=== PATIENT | female | born 1990 | race Caucasian/White ===

== ENCOUNTER 2016-04-26 20:16 | Emergency (ER) | payer SELFPAY ==
--- NOTE | 2016-04-26 20:49 | ER Document Report ---
ED Medical Screen (RME) - General Stated Complaint: FEVER Notes: 25 yo female c/o flu like symptoms x 4 days. + fever, myalgia, cough no flu shot this season Physical Exam - Vital signs Vitals: Temp Pulse Resp BP Pulse Ox 98.8 F 117 H 18 122/81 98 04/26/16 20:46 04/26/16 20:46 04/26/16 20:46 04/26/16 20:46 04/26/16 20:46 Course - Vital Signs Vital signs: Temp Pulse Resp BP Pulse Ox 98.8 F 117 H 18 122/81 98 04/26/16 20:46 04/26/16 20:46 04/26/16 20:46 04/26/16 20:46 04/26/16 20:46
[2016-04-27 01:00] VITALS: BP 124/79
--- NOTE | 2016-04-27 01:07 | ER Document Report ---
ED Flu Like - General Chief Complaint: Flu Symptoms Stated Complaint: FEVER Time seen by provider: 01:02 Mode of Arrival: Ambulatory Information source: Patient Notes: 25-year-old female presents to ED for flulike symptoms. She states she's has a stuffy nose cough fever nausea muscle aches and states she did not get a flu shot this season. - HPI Onset: Other - 4 days Timing/Duration: Persistent Quality of pain: Achy Severity: Moderate Pain Level: 2 CO exposure: No Associated symptoms: Body/muscle aches, Nonproductive cough, Vomiting, Rhinnorhea, Sinus pain/drainage Similar symptoms previously: Yes Recently seen / treated by doctor: No - Related Data Allergies/Adverse Reactions: milk Allergy (Verified 04/27/16 01:18) Penicillins Allergy (Verified 04/27/16 01:18) Past Medical History - General Information source: Patient - Social History Smoking Status: Never Smoker Cigarette use (# per day): No Chew tobacco use (# tins/day): No Smoking Education Provided: No Frequency of alcohol use: Occasional Drug Abuse: None Occupation: printing assistant Lives with: Alone Family History: Arthritis, DM, Malignancy, Thyroid Disfunction. denies: CAD, COPD, CVA, Hyperlipidemia, Hypertension Patient has suicidal ideation: No Patient has homicidal ideation: No - Past Medical History Cardiac Medical History: Reports: None Pulmonary Medical History: Reports: None EENT Medical History: Reports: None Neurological Medical History: Reports: None Endocrine Medical History: Reports: None Renal/ Medical History: Reports: None, Hx Ovarian Cysts Malignancy Medical History: Reports: None GI Medical History: Reports: None Musculoskeltal Medical History: Reports None Skin Medical History: Reports None Psychiatric Medical History: Reports: Hx Anxiety, Hx Depression Traumatic Medical History: Reports: None Infectious Medical History: Reports: None - Immunizations Immunizations up to date: No Hx Diphtheria, Pertussis, Tetanus Vaccination: No History of Influenza Vaccine for 12/2015 - 05/2016 Season: No Review of Systems - Review of Systems Constitutional: Fever, Recent illness EENT: Nose discharge, Sinus pressure, Throat pain Cardiovascular: No symptoms reported Respiratory: Cough Gastrointestinal: No symptoms reported Genitourinary: No symptoms reported Female Genitourinary: No symptoms reported Musculoskeletal: No symptoms reported Skin: No symptoms reported Hematologic/Lymphatic: No symptoms reported Neurological/Psychological: No symptoms reported Physical Exam - Vital signs Vitals: Temp Pulse Resp BP Pulse Ox 98.8 F 117 H 18 122/81 98 04/26/16 20:46 04/26/16 20:46 04/26/16 20:46 04/26/16 20:46 04/26/16 20:46 Interpretation: Normal, Tachycardic - Pulses 104 at discharge - General General appearance: Appears well, Alert - HEENT Head: Normocephalic, Atraumatic Eyes: Normal Pupils: PERRL Ears: Normal External canal: Normal Tympanic membrane: Normal Sinus: Normal Nasal: Purulent discharge, Swelling Mouth/Lips: Normal Mucous membranes: Normal Pharynx: Post nasal drainage - Respiratory Respiratory status: No respiratory distress Chest status: Nontender Breath sounds: Nonproductive cough Chest palpation: Normal - Cardiovascular Rhythm: Regular Heart sounds: Normal auscultation Murmur: No - Abdominal Inspection: Normal Distension: No distension Bowel sounds: Normal Tenderness: Nontender Organomegaly: No organomegaly - Back Back: Normal, Nontender - Extremities General upper extremity: Normal inspection, Nontender, Normal color, Normal ROM , Normal temperature General lower extremity: Normal inspection, Nontender, Normal color, Normal ROM , Normal temperature, Normal weight bearing. No: Monika's sign - Neurological Neuro grossly intact: Yes Cognition: Normal Orientation: AAOx4 [place] Coma Scale Eye Opening: Spontaneous Yary Coma Scale Verbal: Oriented [place] Coma Scale Motor: Obeys Commands [place] Coma Scale Total: 15 Speech: Normal Motor strength normal: LUE, RUE, LLE, RLE Sensory: Normal - Psychological Associated symptoms: Normal affect, Normal mood - Skin Skin Temperature: Warm Skin Moisture: Dry Skin Color: Normal Course - Re-evaluation Re-evalutation: 04/27/16 06:50 Assessment consistent with upper respiratory infection. She has had the symptoms for 4 days. She was instructed on upper respiratory infection treatment and precautions. She was discharged home with instructions to use Tylenol or Motrin for pain and fever. - Vital Signs Vital signs: Temp Pulse Resp BP Pulse Ox 98.5 F 104 H 18 124/79 97 04/27/16 00:58 04/27/16 00:58 04/27/16 00:58 04/27/16 00:58 04/27/16 00:58 Discharge - Discharge Clinical Impression: Upper respiratory infection Qualifiers: URI type: unspecified URI Qualified Code(s): J06.9 - Acute upper respiratory infection, unspecified Condition: Stable Disposition: HOME, SELF-CARE Additional Instructions: UPPER RESPIRATORY ILLNESS: You have a viral infection of the respiratory passages -- a "cold." This common infection causes nasal congestion, drainage, and often sore throat and cough. It is highly contagious. The disease usually lasts about 10 to 14 days. There is no "cure" for the viral infection -- it must run its course. If there is a complication, such as bacterial infection in the nose, sinuses, middle ear, or bronchial tubes, antibiotics may be required. The antibiotics won't affect the virus. Drink plenty of fluids. A humidifier may help. An expectorant medication or decongestant may make you more comfortable. Use acetaminophen or ibuprofen for fever or aches. See the doctor if fever persists over two days, if there is any significant worsening of your symptoms, or if you simply fail to improve as expected. DECONGESTANT MEDICATION: A decongestant medicine has been suggested. Often this medicine is combined in the same tablet with an antihistamine or expectorant. This type of medicine is helpful in treating a bad cold or sinus condition, as well as in treatment of the nasal congestion of hay fever. It is not of much benefit for lung infections. Decongestant medicines are related to stimulants. They can cause an increase in blood pressure and heart rate. Persons with heart disease and high blood pressure should not take decongestants without discussing this with the physician. If you develop palpitations, chest pain, headache, or tremors, stop the medicine and consult your physician. COUGH-SUPPRESSANT & EXPECTORANT MEDICATION: You are to use a cough medication as needed for relief of symptoms. This medicine is a combination of an expectorant (to make the mucous thinner and more easily "coughed up") and a cough suppressant (to reduce the frequency of coughing). The cough-suppressant medicine is related to narcotics. You may experience mild nausea and sleepiness. Some patients who are very sensitive to narcotics may have stomach pain from this medicine. Taking the medicine with food reduces these side effects. Do not drive or work with machinery until you know how this medicine affects you. The expectorant should have no side effects. Iodine-containing expectorants (such as organidin) should not be taken by persons with active thyroid disease unless approved by your doctor. Call the doctor if you develop shortness of breath, hives, rash, itching, lightheadedness, or severe nausea and vomiting. USE OF ACETAMINOPHEN (Tylenol): Acetaminophen may be taken for pain relief or fever control. It's much safer than aspirin, offering a wider range of "safe" dosages. It is safe during . Some brand names are Tylenol, Panadol, Datril, Anacin 3, Tempra, and Liquiprin. Acetaminophen can be repeated every four hours. The following are maximum recommended dosages: >89 pounds or adults 650 mg to 900 mg Acetaminophen can be repeated every four hours. Maximum dose not to exceed 4000 mg a day. FOLLOW-UP CARE: If you have been referred to a physician for follow-up care, call the physician s office for an appointment as you were instructed or within the next two days. If you experience worsening or a significant change in your symptoms, notify the physician immediately or return to the Emergency Department at any time for re-evaluation. Forms: Return to Work
== END 2016-04-27 01:19 | disposition home or self-care (01) ==
LOC: ER 20:16
DX: J06.9 Acute upper respiratory infection, unspecified (principal); R50.9 Fever, unspecified; M79.1 Myalgia; R00.0 Tachycardia, unspecified; Z88.0 Allergy status to penicillin; Z91.011 Allergy to milk products
CPT/HCPCS: 99283

== ENCOUNTER 2016-05-19 01:37 | Emergency (ER) | payer OTHER ==
--- NOTE | 2016-05-19 02:08 | ER Document Report ---
ED Psych Disorder / Suicide - General Time seen by provider: 02:08 Mode of Arrival: Medic Information source: Patient, Relative TRAVEL OUTSIDE OF THE [place] IN LAST 30 DAYS: No - HPI Patient complains to provider of: Overdose Onset: This evening Onset was: Sudden Suicide Risk Factors: Depressed Situational problems related to: Significant other Suicide Attempt Method: Overdose Normal mood: No Associated symptoms: Depressed Similar symptoms previously: Yes Recently seen / treated by doctor: Yes <EMILY HARLEY - Last Filed: 05/19/16 02:49> <XAVIER GALEANO - Last Filed: 05/19/16 13:35> - General Chief Complaint: Overdose Stated Complaint: POSSIBLE OVERDOSE - HPI Notes: Patient is a 25-year-old female who is brought to the emergency room by EMS for possible overdose, patient's fianc and close family friend who accompanied her to the emergency room reports that patient has been "despondent", fidebora reports they had an argument this evening, patient made texts to mom and a post on Facebook stating she was sorry for everything she's done, that she's tried very hard, and she hopes that people can forgive her for what she's done, family friend and fianc report that patient may have overdosed on Benadryl, as they found a bottle of Benadryl on the bed next to her, other medication bottles were empty and were filled in previous years, there was a bottle of Effexor that was filled on 04/17/2016, which was empty but patient's fianc reports she has been taking that medication daily as prescribed so it would be appropriate for that bottle to be empty at this point in time, patient is quite groggy and somnolent, unable to provide information at time of evaluation ( EMILY HARLEY) - Related Data Allergies/Adverse Reactions: milk Allergy (Verified 04/27/16 01:18) Penicillins Allergy (Verified 04/27/16 01:18) Past Medical History - General Information source: Relative - Social History Smoking Status: Unknown if Ever Smoked Family History: Arthritis, DM, Malignancy, Thyroid Disfunction. denies: CAD, COPD, CVA, Hyperlipidemia, Hypertension Renal/ Medical History: Reports: Hx Ovarian Cysts. Denies: Hx Peritoneal Dialysis Psychiatric Medical History: Reports: Hx Anxiety, Hx Depression - Immunizations Immunizations up to date: No Hx Diphtheria, Pertussis, Tetanus Vaccination: No <EMILY HARLEY - Last Filed: 05/19/16 02:49> Review of Systems - Review of Systems -: Yes ROS unobtainable due to patient's medical condition Constitutional: No symptoms reported EENT: No symptoms reported Cardiovascular: No symptoms reported Respiratory: No symptoms reported Gastrointestinal: No symptoms reported Genitourinary: No symptoms reported Female Genitourinary: No symptoms reported Musculoskeletal: No symptoms reported Skin: No symptoms reported Hematologic/Lymphatic: No symptoms reported Neurological/Psychological: See HPI <EMILY HARLEY - Last Filed: 05/19/16 02:49> Physical Exam - Vital signs Interpretation: Normal, Tachycardic - General General appearance: Other - Somnolent In distress: Mild - HEENT Head: Normocephalic, Atraumatic Eyes: Normal Conjunctiva: Normal Extraocular movements intact: Yes Eyelashes: Normal Pupils: PERRL Mucous membranes: Dry Pharynx: Normal Neck: Normal - Respiratory Respiratory status: No respiratory distress Chest status: Nontender Breath sounds: Normal Chest palpation: Normal - Cardiovascular Rhythm: Regular, Tachycardia - Abdominal Inspection: Normal Distension: No distension Bowel sounds: Normal Tenderness: Nontender Organomegaly: No organomegaly - Back Back: Normal - Extremities General upper extremity: Normal inspection General lower extremity: Normal inspection - Neurological Cognition: Confused Orientation: Disoriented to events [place] Coma Scale Eye Opening: Spontaneous [place] Coma Scale Verbal: Confused [place] Coma Scale Motor: Obeys Commands [place] Coma Scale Total: 14 - Psychological Associated symptoms: Other - Unable to evaluate at present time due to patient' s condition - Skin Skin Temperature: Warm Skin Moisture: Dry <EMILY HARLEY - Last Filed: 05/19/16 02:49> Course - Laboratory Result Diagrams: 05/19/16 01:49 05/19/16 01:49 - EKG Interpretation by Pa EKG shows normal: Sinus rhythm Rate: Tachycardia <EMILY HARLEY - Last Filed: 05/19/16 02:49> - Laboratory Result Diagrams: 05/19/16 01:49 05/19/16 01:49 <XAVIER GALEANO - Last Filed: 05/19/16 13:35> - Re-evaluation Re-evalutation: 05/19/16 02:48 A call was placed to poison control, patient was discussed with states Sudhir watch out for typical anticholinergic response, tachycardia, drowsiness, QRS widening, if patient took greater than 1000 mg for possible seizures, he recommends a 6 hour observation period prior to medically clearing patient 05/19/16 02:54 (EMILY HARLEY) - Vital Signs Vital signs: Temp Pulse Resp BP Pulse Ox 98.4 F 23 H 112/70 100 05/19/16 12:00 05/19/16 12:01 05/19/16 12:00 05/19/16 12:01 - Laboratory Laboratory results interpreted by me: 05/19/16 05/19/16 05/19/16 01:49 01:49 03:24 WBC 15.4 H MCV 75 L MCH 24.0 L RDW 15.0 H Seg Neutrophils % 78.1 H Absolute Neutrophils 12.0 H Total Protein Ur Leukocyte Esterase TRACE H Salicylates < 1.0 L Acetaminophen 05/19/16 09:05 WBC MCV MCH RDW Seg Neutrophils % Absolute Neutrophils Total Protein 6.2 L Ur Leukocyte Esterase Salicylates Acetaminophen < 10 L Discharge <EMILY HARLEY - Last Filed: 05/19/16 02:49> <XAVIER GALEANO - Last Filed: 05/19/16 13:35> - Discharge Clinical Impression: Suicidal ideation Diphenhydramine overdose Qualifiers: Encounter type: initial encounter Injury intent: intentional self-harm Qualified Code(s): T45.0X2A - Poisoning by antiallergic and antiemetic drugs, intentional self-harm, initial encounter Condition: Stable Disposition: PSYCH HOSP/UNIT Additional Instructions: PROCEED TO [facility].
[2016-05-19 02:15] LABS: ABSOLUTE LYMPHOCYTES (AUTO) 2.5 10^3/uL (0.5-4.7); ABSOLUTE MONOCYTES (AUTO) 0.8 10^3/uL (0.1-1.4); BASOPHILS % (AUTO) 0.2 % (0-2); EOSINOPHILS % (AUTO) 0.2 % (0-6); HEMATOCRIT 37.9 % (36.0-47.0); HEMOGLOBIN 12.2 g/dL (12.0-15.5); HGB HCT DIFFERENCE -1.3; LYMPHOCYTES % (AUTO) 16.4 % (13-45); MEAN CORPUSCULAR HGB CONC 32.1 g/dL (32.0-36.0); MEAN CORPUSCULAR VOLUME 75 fl (80-97); MONOCYTES % (AUTO) 5.1 % (3-13); RED BLOOD COUNT 5.07 10^6/uL (3.72-5.28); SEGMENTED NEUTROPHILS % (AUTO) 78.1 % (42-78); WHITE BLOOD COUNT 15.4 10^3/uL (4.0-10.5)
[2016-05-19 02:21] LABS: ALANINE AMINOTRANSFERASE 27 U/L (9-52); ALBUMIN 3.7 g/dL (3.5-5.0); ALKALINE PHOSPHATASE 78 U/L (38-126); ANION GAP 10 (5-19); ASPARTATE AMINO TRANSFERASE 17 U/L (14-36); BILIRUBIN,TOTAL 0.5 mg/dL (0.2-1.3); BLOOD UREA NITROGEN 11 mg/dL (7-20); CALCIUM 9.1 mg/dL (8.4-10.2); CARBON DIOXIDE 24 mmol/L (22-30); CHLORIDE 107 mmol/L (98-107); CREATININE RESULT 0.66 mg/dL (0.52-1.25); GLUCOSE 96 mg/dL (75-110); POTASSIUM 4.1 mmol/L (3.6-5.0); SODIUM 141.3 mmol/L (137-145); TOTAL PROTEIN 6.5 g/dL (6.3-8.2)
[2016-05-19 02:23] LABS: ALCOHOL < 10 mg/dL (NONE DETECTED)
[2016-05-19] MEDS ORDERED: NORMAL SALINE 1000 ML 1,000 ML IV PRN (02:43)
[2016-05-19 04:04] LABS: APPEARANCE,URINE CLOUDY; BILIRUBIN,URINE NEGATIVE (NEGATIVE); GLUCOSE, URINE NEGATIVE (NEGATIVE); KETONES,URINE NEGATIVE (NEGATIVE); LEUKOCYTE ESTERASE,URINE TRACE (NEGATIVE); NITRITE,URINE NEGATIVE (NEGATIVE); PROTEIN,URINE NEGATIVE (NEGATIVE); URINE SPECIFIC GRAVITY 1.029; UROBILINOGEN,URINE NEGATIVE mg/dL (<2.0)
[2016-05-19 04:15] LABS: URINE BARBITURATES SCREEN NEGATIVE; URINE METHADONE SCREEN NEGATIVE; URINE OPIATES LOW UNCONFIRMED POSITIVE; URINE PHENCYCLIDINE SCREEN NEGATIVE
--- NOTE | 2016-05-19 05:41 | EKG REPORT ---
SEVERITY:- OTHERWISE NORMAL ECG - SINUS TACHYCARDIA : Confirmed by: Yolanda Wiley MD 19-May-2016 05:40:34
[2016-05-19] MEDS ORDERED: NORMAL SALINE 1000 ML 1,000 ML IV ONE (07:25)
[2016-05-19] MEDS ORDERED: LORAZEPAM INJ 2 MG/1 ML VIAL IV ONE (07:57)
[2016-05-19 09:41] LABS: ALANINE AMINOTRANSFERASE 31 U/L (9-52); ALBUMIN 3.7 g/dL (3.5-5.0); ALKALINE PHOSPHATASE 79 U/L (38-126); ASPARTATE AMINO TRANSFERASE 17 U/L (14-36); BILIRUBIN,TOTAL 0.7 mg/dL (0.2-1.3); TOTAL PROTEIN 6.2 g/dL (6.3-8.2)
--- NOTE | 2016-05-19 10:55 | ER Document Report ---
Doctor's Note Notes: 05/19/16 10:53 Medical rounds: Chart reviewed and patient interviewed briefly. Patient is somnolent but easily arousable. Upon arousal she is alert and oriented. She verbalizes no somatic complaints. She continues to be mildly tachycardic. No arrhythmias have been noted. Laboratory values are remarkable for a mild leukocytosis and drug screen positive for opioids. She is medically stable pending evaluation by psych.
[2016-05-19] MEDS ORDERED: BUSPIRONE HCL 10 MG TABLET PO SCH ×2 (11:30→22:00)
[2016-05-19] MEDS ORDERED: DIVALPROEX SODIUM 500 MG TAB.SR.24H PO SCH (12:00)
[2016-05-19 15:27] VITALS: BP 115/75
--- NOTE | 2016-05-20 14:25 | PSYCHOLOGICAL NOTE ---
Psych Note - Psych Note Psych Note: Patient is a 25-year-old female who is brought to the emergency room by EMS for possible overdose, patient's olga and close family friend who accompanied her to the emergency room reports that patient has been "despondent", olga reports they had an argument this evening, patient made texts to mom and a post on Facebook stating she was sorry for everything she's done, that she's tried very hard, and she hopes that people can forgive her for what she's done, family friend and fianc report that patient may have overdosed on Benadryl, as they found a bottle of Benadryl on the bed next to her, other medication bottles were empty and were filled in previous years, there was a bottle of Effexor that was filled on 04/17/2016, which was empty but patient's olga reports she has been taking that medication daily as prescribed so it would be appropriate for that bottle to be empty at this point in time, patient is quite groggy and somnolent, unable to provide information at time of evaluation Patient disclosed that she "hates this process." When asked to clarify statements patient states that she hates the process of this "failed attempt." She states that she has had 1 previous attempt when she was 20 and it just made it harder when didn't work. Patient disclosed that she intentionally overdosed on her medications and believes at this time with Lunesta, Effexor, Benadryl, and Celexa. Patient states that she has been on medication since she was 20 and nothing has worked. She continued disclosed that she suffers from high anxiety and depression. Patient was asked about any history of self-harm such as cutting, patient deflected question. When asked what was the trigger patient disclosed that her racheal's family doesn't like her. She continue disclosed that she is very close with her family and feels that she is tearing apart the relationship between her room olga and family. She continued disclosed that when she was young and her parents are going through a divorce she took care of the other siblings. She states that her mother with make many plans to come and see them however and always canceling that she can go out with her friends last night the patient's olga and olga's mother were all supposed to go to the movies receive these however the last minute olga's mother canceled. Patient states that this upset her and while she feels that she is worthless and a burden to everyone she tries to tell herself that she does not. Last night when plans fell through she blamed herself. Patient she actually that she was a that she will falling asleep everything was going to be perfect or she would not feel or wake up. Patient's sister spoke with clinician about concerns for the patient. She disclosed the patient has carved the word burden on her thigh; clinician notes that this was observed however patient deflected question. She continued disclosed patient attempted to take her life by overdose when she was 20 and she was one who found her then. She continued disclosed that the patient takes on everybody else's emotional burdens doesn't see herself as worthy. Patient is alert and orientated to person place time and certainly. Mood is dysphoric with flat affect. Patient endorses suicidal ideation; patient attempted suicide by intentional overdose. Patient denies homicidal ideation. Patient denies auditory and visual hallucinations; no delusions are noted. Thought process is logical and linear. Thought content surrounds self-doubt and blame. Conversational speech was within normal rate tone and prosody. Eye contact was fair. Intellectual abilities appear to be within average range. Attention and concentration are fair. Insight, judgment, impulse control are poor. 311 (F32.9) Unspecified Depressive Disorder per history provided by patient 300.00 (F41.9) Unspecified Anxiety Disorder per history provided by patient impression/plan: Patient is recommended to continue under IVC; patient verbalizes she is still actively suicidal. Is upset that she is still alive in identifies this is a "failed attempt." Patient is recommended for inpatient treatment. Dr. Durant was consulted on the care and management of this patient. Attending physician is in agreement with recommendations and disposition. Patient was accepted to [facility]; transportation will occur today.
--- NOTE | 2016-05-20 16:12 | EKG REPORT ---
SEVERITY:- OTHERWISE NORMAL ECG - SINUS TACHYCARDIA : Confirmed by: Yolanda Wiley MD 20-May-2016 16:11:39
== END 2016-05-19 14:15 ==
LOC: ER 01:37
DX: T45.0X2A Poisoning by antiallergic and antiemetic drugs, intentional self-harm, initial encounter (principal); R40.0 Somnolence; R00.0 Tachycardia, unspecified; D72.829 Elevated white blood cell count, unspecified; F32.9 Major depressive disorder, single episode, unspecified; Z91.010 Allergy to peanuts; Z88.0 Allergy status to penicillin
CPT/HCPCS: 93005; 99285; 96360; 36415; 80307 ×4; 84703; 85025; 80076; 80053; 81001; 93010; J7030

== ENCOUNTER 2017-08-20 23:48 | Emergency (ER) | payer OTHER ==
--- NOTE | 2017-08-21 01:07 | RADIOLOGY REPORT (SQ) ---
EXAM DESCRIPTION: XR WRIST 3 OR MORE VIEWS BILATERAL COMPLETED DATE/TME: 08/20/2017 00:00 CLINICAL HISTORY: 27 years, Female, Pain s/p fall COMPARISON: None. NUMBER OF VIEWS: 3 LIMITATIONS: None. FINDINGS: Linear intra-articular lucency-defect of the right radial styloid without displacement. IMPRESSION: Intra-articular fracture/defect of the right distal radius.
--- NOTE | 2017-08-21 01:42 | ER Document Report ---
ED General - General Chief Complaint: Arm Injury Stated Complaint: SORETHROAT AND ARM INJURY Time Seen by Provider: 08/21/17 01:42 Mode of Arrival: Ambulatory Information source: Patient Notes: 27-year-old female presents with complaints of right wrist pain after a mechanical fall 2 weeks ago. Patient notes the wrist pain has been improving, denies any numbness or weakness but notes it does hurt with range of motion. Patient presented today though for tonsillitis states she has tonsillitis once a year that she is around elderly patients Denies any difficulty swallowing but notes it hurts to swallow TRAVEL OUTSIDE OF THE [place] IN LAST 30 DAYS: No - HPI Onset: Other Onset/Duration: Persistent Quality of pain: Achy Severity: Mild Pain Level: 1 Associated symptoms: Body/muscle aches, Sore throat Exacerbated by: Movement Relieved by: Denies Similar symptoms previously: Yes Recently seen / treated by doctor: No - Related Data Allergies/Adverse Reactions: milk Allergy (Verified 04/27/16 01:18) Penicillins Allergy (Verified 04/27/16 01:18) Past Medical History - Social History Smoking Status: Never Smoker Cigarette use (# per day): No Chew tobacco use (# tins/day): No Smoking Education Provided: No Family History: Arthritis, DM, Malignancy, Thyroid Disfunction. denies: CAD, COPD, CVA, Hyperlipidemia, Hypertension Patient has suicidal ideation: No Patient has homicidal ideation: No Renal/ Medical History: Reports: Hx Ovarian Cysts. Denies: Hx Peritoneal Dialysis Psychiatric Medical History: Reports: Hx Anxiety, Hx Depression - Immunizations Immunizations up to date: No Hx Diphtheria, Pertussis, Tetanus Vaccination: No Review of Systems - Review of Systems Notes: REVIEW OF SYSTEMS: CONSTITUTIONAL : Denies fever, chills, or sweats. Denies recent illness. EENT: Admits to pain with swallowing CARDIOVASCULAR: Denies chest pain. Denies palpitations or racing or irregular heart beat. Denies ankle edema. RESPIRATORY: Denies cough, cold, or chest congestion. Denies shortness of breath, difficulty breathing, or wheezing. GASTROINTESTINAL: Denies abdominal pain or distention. Denies nausea, vomiting , or diarrhea. Denies blood in vomitus, stools, or per rectum. Denies black, tarry stools. Denies constipation. GENITOURINARY: Denies difficulty urinating, painful urination, burning, frequency, blood in urine, or discharge. FEMALE GENITOURINARY: Denies vaginal bleeding, heavy or abnormal periods, irregular periods. Denies vaginal discharge or odor. MUSCULOSKELETAL: Admits to right wrist pain SKIN: Denies rash, lesions or sores. HEMATOLOGIC : Denies easy bruising or bleeding. LYMPHATIC: Denies swollen, enlarged glands. NEUROLOGICAL: Denies confusion or altered mental status. Denies passing out or loss of consciousness. Denies dizziness or lightheadedness. Denies headache. Denies weakness or paralysis or loss of use of either side. Denies problems with gait or speech. Denies sensory loss, numbness, or tingling. Denies seizures. PSYCHIATRIC: Denies anxiety or stress. Denies depression, suicidal ideation, or homicidal ideation. ALL OTHER SYSTEMS REVIEWED AND NEGATIVE. PHYSICAL EXAMINATION: GENERAL: Well-appearing, well-nourished and in no acute distress. HEAD: Atraumatic, normocephalic. EYES: Pupils equal round and reactive to light, extraocular movements intact, conjunctiva are normal. ENT: Bilateral tonsillar enlargement with erythema +1 uvula midline airway patent NECK: Normal range of motion, supple without lymphadenopathy LUNGS: Breath sounds clear to auscultation bilaterally and equal. No wheezes rales or rhonchi. HEART: Regular rate and rhythm without murmurs ABDOMEN: Soft, nontender, nondistended abdomen. No guarding, no rebound. No masses appreciated. Female : deferred Musculoskeletal: Normal range of motion, no pitting or edema. No cyanosis. Tenderness on palpation of the distal radius cockup Velcro splint in place NEUROLOGICAL: Cranial nerves grossly intact. Normal speech, normal gait. Normal sensory, motor exams PSYCH: Normal mood, normal affect. SKIN: Warm, Dry, normal turgor, no rashes or lesions noted. Dictation was performed using [employer] voice recognition software Physical Exam - Vital signs Vitals: Temp Pulse Resp BP Pulse Ox 98.6 F 88 20 128/84 H 98 08/21/17 00:50 08/21/17 00:50 08/21/17 00:50 08/21/17 00:50 08/21/17 00:50 Course - Re-evaluation Re-evalutation: 08/21/17 02:05 X-rays consistent with a distal radial fracture, will place the patient splint have her follow-up with [facility], I will place patient on antibiotics given multiple sick contacts After performing a Medical Screening Examination, I estimate there is LOW risk for INTRACRANIAL HEMORRHAGE, UNSTABLE SPINE FRACTURE, CENTRAL CORD SYNDROME, CAUDA EQUINA, THORACIC AORTIC DISSECTION, PNEUMOTHORAX, PERFORATED BOWEL, RUPTURED ABDOMINAL AORTIC ANEURYSM, ACUTE TENDON RUPTURE, COMPARTMENT SYNDROME, or OPEN FRACTURE, thus I consider the discharge disposition reasonable. Also, there is no evidence or peritonitis, sepsis, or toxicity. I have reevaluated this patient multiple times and no significant life threatening changes are noted. The patient and I have discussed the diagnosis and risks, and we agree with discharging home to follow-up with their primary doctor with the understanding that symptoms and presentations can change. We also discussed returning to the Emergency Department immediately if new or worsening symptoms occur. We have discussed the symptoms which are most concerning (e.g., bloody stool, fever, changing or worsening pain, vomiting) that necessitate immediate return. - Vital Signs Vital signs: Temp Pulse Resp BP Pulse Ox 98.6 F 88 20 128/84 H 98 08/21/17 00:50 08/21/17 00:50 08/21/17 00:50 08/21/17 00:50 08/21/17 00:50 - Diagnostic Test Radiology reviewed: Image reviewed - X-ray three-view right wrist consistent with distal radial fracture, Reports reviewed Procedures - Immobilization Right Wrist Time completed: 02:05 Pre-Proc Neuro Vasc Exam: Normal Immobilizer type: Volar splint Performed by: RN Post-Proc Neuro Vasc Exam: Normal Alignment checked and good: Yes Discharge - Discharge Clinical Impression: Distal radial fracture, Tonsillitis Condition: Stable Disposition: HOME, SELF-CARE Instructions: Tonsillitis ([facility]) Prescriptions: Azithromycin 250 mg PO DAILY #4 tablet Referrals: KATARZYNA WILLIAMSON DO [ACTIVE STAFF] - Follow up as needed
[2017-08-21] MEDS ORDERED: AZITHROMYCIN 250 MG TABLET PO ONE (02:01)
[2017-08-21 02:56] VITALS: BP 124/76
== END 2017-08-21 02:36 | disposition home or self-care (01) ==
LOC: ER 23:48
DX: S52.571A Other intraarticular fracture of lower end of right radius, initial encounter for closed fracture (principal); W19.XXXA Unspecified fall, initial encounter; J03.90 Acute tonsillitis, unspecified; Z91.011 Allergy to milk products; Z88.0 Allergy status to penicillin
CPT/HCPCS: 99283